=== PATIENT | female | born 2000 | race Caucasian/White ===

== ENCOUNTER 2022-08-11 22:26 | Emergency (ER) | payer MEDICAID ==
[~2022-08-11] VITALS: Ht 149.9 cm; Wt 48.2 kg
[2022-08-11 23:42] LABS: BASOPHILS % 0.4 % (0.0-2.0); EOSINOPHILS % 1.7 % (0.0-5.0); HEMATOCRIT. 36.8 % (36.0-48.0); HEMOGLOBIN. 12.4 g/dL (12.0-16.0); LYMPHOCYTES % 17.3 % (20.0-50.0); MEAN CORPUSCULAR HEMOGLOBIN 27.9 pg (28.0-32.0); MEAN CORPUSCULAR VOLUME 83.1 fL (81.0-99.0); MEAN PLATELET VOLUME 8.2 fl (7.4-10.4); MONOCYTES % 6.3 % (2.0-8.0); NEUTROPHILS % 74.3 % (40.0-76.0); PLATELET 319 x1000/uL (130-400); RED BLOOD CELL COUNT 4.43 mill/uL (4.2-5.4); RED CELL DISTRIBUTION WIDTH 18.6 % (11.6-14.6)
[2022-08-11 23:51] LABS: CHLORIDE 107 mEq/L (98-107)
[2022-08-12] MEDS ORDERED: ACETAMINOPHEN 500MG TABLET PO ONE (02:00)
[2022-08-12 04:17] LABS: B-HCG QUANTITATIVE 27099 mIU/mL (<3)
[2022-08-12 04:26] LABS: CLARITY URINE CLEAR (CLEAR); COLOR URINE YELLOW (YELLOW); KETONES URINE NEGATIVE (NEGATIVE); LEUKOCYTE ESTERASE URINE 2+ (NEGATIVE); NITRITE URINE NEGATIVE (NEGATIVE); OCCULT BLOOD URINE NEGATIVE (NEGATIVE); PROTEIN URINE NEGATIVE (NEGATIVE); SPECIFIC GRAVITY URINE 1.013 (1.005-1.030); UROBILINOGEN URINE 0.2 E.U./dL (0.2-1.0)
[2022-08-12] MEDS ORDERED: NITR-87 MT (04:30)
[2022-08-12] MEDS ORDERED: TOPUD MT (04:30)
[2022-08-12 04:43] VITALS: BP 96/60
== END 2022-08-12 04:48 | disposition home or self-care (01) ==
LOC: ER 22:26
DX: O26.892 Other specified pregnancy related conditions, second trimester (principal); Z3A.15 15 weeks gestation of pregnancy; O23.32 Infections of other parts of urinary tract in pregnancy, second trimester
CPT/HCPCS: 36415; 76805; 80053; 81003; 84702; 85025; 99284

== ENCOUNTER 2024-04-06 23:15 | Emergency (ER) | payer MEDICAID, MEDICARE, OTHER ==
[~2024-04-06] VITALS: Ht 149.9 cm; Wt 58.0 kg
[~2024-04-06 23:15] MED LIST: NITR-87 MT; TOPUD MT
[2024-04-06 23:21] VITALS: O2SAT 97
[2024-04-07 00:24] VITALS: BP 113/67; PULSE 116; RESP 18; TEMP 98.5; O2SAT 99
[2024-04-07 00:49] LABS: HEMATOCRIT. 40.4 % (36.0-48.0); HEMOGLOBIN. 13.6 g/dL (12.0-16.0); MEAN CORPUSCULAR HEMOGLOBIN 28.8 pg (28.0-32.0); MEAN CORPUSCULAR HGB CONC 33.6 g/dL (31.0-37.0); MEAN PLATELET VOLUME 8.6 fl (7.4-10.4); PLATELET 322 x1000/uL (130-400); RED CELL DISTRIBUTION WIDTH 13.8 % (11.6-14.6); WHITE BLOOD COUNT 7.4 x1000/uL (4.5-11.0)
[2024-04-07 00:58] LABS: CHLORIDE 104 mEq/L (98-107); POTASSIUM 3.5 mEq/L (3.5-5.1); SODIUM 139 mEq/L (136-145)
[2024-04-07 00:59] LABS: CALCIUM 9.5 mg/dL (8.7-10.4); CARBON DIOXIDE 25 mEq/L (21-32)
[2024-04-07 01:01] LABS: DIFFERENTIAL COMMENT 1
[2024-04-07 01:04] LABS: CREATININE 0.6 mg/dL (0.6-1.0); GLUCOSE 108 mg/dL (70-105)
[2024-04-07 01:05] LABS: UREA NITROGEN BLOOD 11 mg/dL (9-23)
[2024-04-07 01:06] LABS: ALANINE AMINOTRANSFERASE 9 IU/L (10-49); ALBUMIN 4.7 g/dL (3.2-4.8); ASPARTATE AMINOTRANSFERASE 11 IU/L (<34); BILIRUBIN TOTAL 0.3 mg/dL (0.1-1.0)
[2024-04-07 01:07] LABS: PROTEIN TOTAL 7.2 g/dL (6.0-8.3)
[2024-04-07 01:13] LABS: BILIRUBIN DIRECT < 0.1 mg/dL (<=3.0)
[2024-04-07 03:59] LABS: CLARITY URINE CLEAR (CLEAR); COLOR URINE YELLOW (YELLOW); PROTEIN URINE 1+ (NEGATIVE)
[2024-04-07 04:00] LABS: GLUCOSE URINE NEGATIVE (NEGATIVE); KETONES URINE 1+ (NEGATIVE); NITRITE URINE NEGATIVE (NEGATIVE); OCCULT BLOOD URINE NEGATIVE (NEGATIVE)
[2024-04-07 04:01] LABS: LEUKOCYTE ESTERASE URINE TRACE (NEGATIVE)
[2024-04-07 04:03] LABS: SQUAMOUS EPITHELIAL CELL URINE 2+ /lpf (RARE/1+)
[2024-04-07 04:04] LABS: BACTERIA URINE 1+; RBC URINE 0-2 /hpf (0-2)
[2024-04-07] MEDS ORDERED: SULF1TAB48 MT (04:37)
[2024-04-07 14:05] LABS: PLATELET ESTIMATE NORMAL
== END 2024-04-07 05:19 | disposition home or self-care (01) ==
LOC: ER 23:15
DX: N12 Tubulo-interstitial nephritis, not specified as acute or chronic (principal); R07.89 Other chest pain
CPT/HCPCS: 36415; 74176; 80048; 80076; 81003; 81025; 85025; 99284